=== PATIENT | female | born 1995 | race Caucasian/White ===

== ENCOUNTER 2021-09-22 18:49 | Emergency (ER) | payer OTHER ==
[~2021-09-22] VITALS: Ht 157.5 cm; Wt 68.0 kg
== END 2021-09-22 21:11 | disposition home or self-care (01) ==
LOC: ER 18:49
DX: O46.92 Antepartum hemorrhage, unspecified, second trimester (principal); Z3A.22 22 weeks gestation of pregnancy

== ENCOUNTER 2021-09-24 18:09 | Emergency (ER) | payer OTHER ==
[~2021-09-24] VITALS: Ht 157.5 cm; Wt 59.9 kg
== END 2021-09-25 09:12 | disposition home or self-care (01) ==
LOC: ER 18:09
DX: O03.9 Complete or unspecified spontaneous abortion without complication (principal); D27.0 Benign neoplasm of right ovary; Z20.822 Contact with and (suspected) exposure to COVID-19

== ENCOUNTER 2021-09-27 16:23 | Emergency (ER) | payer OTHER ==
[~2021-09-27] VITALS: Ht 157.5 cm; Wt 68.0 kg
== END 2021-09-28 20:01 | disposition home or self-care (01) ==
LOC: ER 16:23
DX: D36.7 Benign neoplasm of other specified sites (principal); O03.6 Delayed or excessive hemorrhage following complete or unspecified spontaneous abortion

== ENCOUNTER 2025-05-25 17:10 | Outpatient (CLI) | payer OTHER ==
[~2025-05-25] VITALS: Ht 157.5 cm; Wt 74.8 kg
[2025-05-25 16:40] VITALS: BP 107/74
[~2025-05-25 17:10] MED LIST: FAMOTIDINE/PF 20 MG/2 ML VIAL IV SCH
[2025-05-25] MEDS ORDERED: RINGERS SOLUTION,LACTATED 1,000 ML IV SCH (17:30)
[2025-05-25] MEDS ORDERED: ONDANSETRON HCL 2 MG/ML VIAL IV PRN (17:30)
[2025-05-25] MEDS ORDERED: PRENATA CHEWAB1 EACH (17:41)
[2025-05-25] MEDS ORDERED: CHILDREN'S ASPI81 MG PO (17:41)
[2025-05-25 18:06] LABS: BASO % 0.2 % (0.1-1.2); EOS # 0.03 (0.04-0.54); EOS % 0.2 % (0.7-7.0); LYMPH # 1.48 (1.18-3.74); LYMPH % 11.8 % (19.3-53.1); MEAN PLATELET VOLUME 10.40 fl (9.4-12.4); MONO # 0.85 (0.24-0.82); MONO % 6.8 % (4.7-12.5); NEUT # 10.11 (1.56-6.13); NEUT % 80.4 % (34.0-71.1); RED CELL DISTRIBUTION WIDTH 13.8 % (11.6-14.4)
[2025-05-25 18:10] LABS: URINE APPEARANCE Cloudy; URINE BILIRRUBIN Negative (NEGATIVE); URINE BLOOD Negative; URINE COLOR Dark Yellow; URINE GLUCOSE Negative (NEGATIVE); URINE LEUKOCYTE Large; URINE NITRATE Negative; URINE PROTEIN Trace (NEGATIVE); URINE UROBILINOGEN 1.0 E.U./dl
[2025-05-25 18:16] LABS: URINE EPITHELIAL CELLS 114.9 uL (0.0-38.8); URINE RBC 10.1 uL (0.0-20.8); URINE WBC 152.7 uL (0.0-23.2)
[2025-05-25 18:31] LABS: URINE CAST 1.31 uL (0.0-1.40); URINE KETONE 80 (NEGATIVE)
[2025-05-25 18:40] LABS: TYPE CELLS SQUAMOUS; URINE MUCUS SCANT
[2025-05-25 18:50] LABS: ALT/SGPT 49.0 U/L (12-78); AST/SGOT 71.0 U/L (15-37); BILIRUBIN TOTAL 0.85 mg/dL (0.3-1.2); BUN CREA RATIO 15.0 (7.0-25.0); CREATININE SERUM 0.48 mg/dL (0.55-1.02); GFR 155.14; GLOBULINA 3.6 G/DL (2.4-3.5); GLUCOSE FASTING 82.0 mg/dL (65-100); OSMOLALITY SERUM 275.0 MOSM/KG (275-295)
[2025-05-25 20:30] VITALS: BP 109/62
[2025-05-25 23:24] VITALS: BP 105/62
[2025-05-26 04:00] VITALS: BP 94/59
[2025-05-26 07:55] VITALS: BP 93/51; O2SAT 100
== END 2025-05-26 14:32 | disposition home or self-care (01) ==
LOC: OBS/DEL 17:10
PROVIDERS: Specialist; ATTEND Obstetrics & Gynecology
DX: O99.613 Diseases of the digestive system complicating pregnancy, third trimester (principal); K52.9 Noninfective gastroenteritis and colitis, unspecified; Z3A.36 36 weeks gestation of pregnancy

== ENCOUNTER 2025-05-29 10:23 | Inpatient (IN) | payer OTHER ==
[~2025-05-29] VITALS: Ht 160 cm; Wt 76.7 kg
[~2025-05-29 10:23] MED LIST changes: +CHILDREN'S ASPI81 MG PO; -FAMOTIDINE/PF 20 MG/2 ML VIAL IV SCH; +PRENATA CHEWAB1 EACH
[2025-05-29 10:26] VITALS: BP 100/62
[2025-05-29] MEDS ORDERED: FAMOTIDINE/PF 20 MG/2 ML VIAL IV PUSH SCH (11:00)
[2025-05-29] MEDS ORDERED: RINGERS SOLUTION,LACTATED 1,000 ML IV SCH (11:00)
[2025-05-29 12:13] LABS: BASO % 0.2 % (0.1-1.2); EOS # 0.05 (0.04-0.54); EOS % 0.5 % (0.7-7.0); LYMPH # 1.31 (1.18-3.74); LYMPH % 13.8 % (19.3-53.1); MEAN PLATELET VOLUME 10.60 fl (9.4-12.4); MONO # 0.70 (0.24-0.82); MONO % 7.4 % (4.7-12.5); NEUT # 7.33 (1.56-6.13); NEUT % 77.4 % (34.0-71.1); RED CELL DISTRIBUTION WIDTH 14.1 % (11.6-14.4)
[2025-05-29 12:20] LABS: URINE APPEARANCE Clear; URINE BILIRRUBIN Small (NEGATIVE); URINE BLOOD Negative; URINE COLOR Dark Yellow; URINE GLUCOSE Negative (NEGATIVE); URINE LEUKOCYTE Small; URINE NITRATE Negative; URINE PROTEIN Trace (NEGATIVE); URINE UROBILINOGEN 2.0 E.U./dl
[2025-05-29 12:21] LABS: URINE BACTERIA 535.1 uL (0.0-1933); URINE EPITHELIAL CELLS 21.3 uL (0.0-38.8); URINE RBC 2.3 uL (0.0-20.8); URINE WBC 20.4 uL (0.0-23.2)
[2025-05-29 12:26] LABS: URINE CAST 0.00 uL (0.0-1.40); URINE KETONE 80 (NEGATIVE)
[2025-05-29 13:22] LABS: ALT/SGPT 59.0 U/L (12-78); AST/SGOT 81.0 U/L (15-37); BILIRUBIN TOTAL 1.14 mg/dL (0.3-1.2); BUN CREA RATIO 13.0 (7.0-25.0); CREATININE SERUM 0.45 mg/dL (0.55-1.02); GFR 167.13; GLOBULINA 4.0 G/DL (2.4-3.5); GLUCOSE FASTING 86.0 mg/dL (65-100); OSMOLALITY SERUM 276.0 MOSM/KG (275-295)
[2025-05-29] MEDS ORDERED: CITRIC ACID/SODIUM CITRATE 30 ML BLIST.PACK PO NR (14:00)
[2025-05-29 15:25] VITALS: BP 107/64
[2025-05-29] MEDS ORDERED: PROMETHAZINE HCL 25 MG/ML AMPUL IV ONE (15:45)
[2025-05-29 19:37] VITALS: BP 98/63
[2025-05-29 22:10] VITALS: BP 98/63
[2025-05-29] MEDS ORDERED: MORPHINE SULFATE 4 MG/ML CARTRIDGE IV PRN (22:30)
[2025-05-29 23:08] VITALS: BP 96/58
[2025-05-30] VITALS (8 sets, daily range): BP systolic 100–120; BP diastolic 60–82; O2SAT 98
[2025-05-30] MEDS ORDERED: CEFOXITIN SODIUM 2,000 MG VIAL IV SCH (01:00)
[2025-05-31 03:14] VITALS: BP 111/68
[2025-05-31 07:34] VITALS: BP 108/71
[2025-05-31 09:15] VITALS: BP 117/79
[2025-05-31 10:43] LABS: ALT/SGPT 63.0 U/L (12-78); AST/SGOT 50.0 U/L (15-37); BILIRUBIN TOTAL 0.44 mg/dL (0.3-1.2); BUN CREA RATIO 12.0 (7.0-25.0); CREATININE SERUM 0.52 mg/dL (0.55-1.02); GFR 141.45; GLOBULINA 3.4 G/DL (2.4-3.5); GLUCOSE FASTING 107.0 mg/dL (65-100); OSMOLALITY SERUM 276.0 MOSM/KG (275-295)
[2025-05-31 10:46] VITALS: BP 111/73
[2025-05-31 16:21] VITALS: BP 110/73
[2025-06-01] VITALS: BP 101/64
[2025-06-01] MEDS ORDERED: MORPHINE SULFATE 4 MG/ML CARTRIDGE IV PRN (07:00)
[2025-06-01 08:42] VITALS: BP 107/70
[2025-06-01 17:09] VITALS: BP 116/70
[2025-06-02 01:39] VITALS: BP 115/60; O2SAT 98
[2025-06-02 07:52] LABS: AST/SGOT 92 U/L (15-37)
[2025-06-02 08:08] VITALS: BP 103/68
[2025-06-02] MEDS ORDERED: PANTOPRAZOLE SODIUM 40 MG in 0.9 % SODIUM CHLORIDE 8 ML IV PUSH SCH (09:00)
[2025-06-02] MEDS ORDERED: ACETAMINOPHEN 500 MG GEL..CAP PO PRN (12:15)
[2025-06-02 15:28] VITALS: BP 114/80
[2025-06-02 20:01] VITALS: BP 117/75
[2025-06-03 00:05] VITALS: BP 119/75
[2025-06-03 08:00] VITALS: BP 109/74
[2025-06-03 16:36] VITALS: BP 103/70
[2025-06-04 00:08] VITALS: BP 118/70
[2025-06-04 08:39] VITALS: BP 118/75
[2025-06-04 16:37] VITALS: BP 116/72
[2025-06-04] MEDS ORDERED: RINGERS SOLUTION,LACTATED 1,000 ML IV SCH (17:30)
[2025-06-04 22:45] VITALS: BP 128/71
[2025-06-04 23:13] LABS: BASO % 0.2 % (0.1-1.2); EOS # 0.10 (0.04-0.54); EOS % 1.2 % (0.7-7.0); LYMPH # 1.93 (1.18-3.74); LYMPH % 24.0 % (19.3-53.1); MEAN PLATELET VOLUME 10.60 fl (9.4-12.4); MONO # 0.62 (0.24-0.82); MONO % 7.7 % (4.7-12.5); NEUT # 5.31 (1.56-6.13); NEUT % 66.3 % (34.0-71.1); RED CELL DISTRIBUTION WIDTH 14.8 % (11.6-14.4)
[2025-06-04 23:20] LABS: URINE APPEARANCE Cloudy; URINE BILIRRUBIN Negative (NEGATIVE); URINE BLOOD Negative; URINE COLOR Dark Yellow; URINE GLUCOSE Negative (NEGATIVE); URINE LEUKOCYTE Moderate; URINE NITRATE Negative; URINE PROTEIN 30 (NEGATIVE); URINE UROBILINOGEN 1.0 E.U./dl
[2025-06-04 23:23] LABS: URINE BACTERIA 394.8 uL (0.0-1933); URINE EPITHELIAL CELLS 74.7 uL (0.0-38.8); URINE RBC 13.4 uL (0.0-20.8); URINE WBC 39.6 uL (0.0-23.2)
[2025-06-04 23:30] LABS: INR 0.98
[2025-06-04 23:39] LABS: BUN CREA RATIO 5.0 (7.0-25.0); CREATININE SERUM 0.88 mg/dL (0.55-1.02); GFR 77.08; GLUCOSE FASTING 77.0 mg/dL (65-100); OSMOLALITY SERUM 279.0 MOSM/KG (275-295)
[2025-06-04 23:48] LABS: URINE CAST 1.31 uL (0.0-1.40); URINE KETONE >=160 (NEGATIVE)
[2025-06-04 23:50] VITALS: BP 119/67; O2SAT 100
[2025-06-05 05:37] VITALS: BP 120/63
[2025-06-05 07:41] VITALS: BP 127/58
[2025-06-05 11:15] VITALS: BP 120/74
[2025-06-05 15:47] VITALS: BP 131/79
[2025-06-05 19:15] VITALS: BP 121/67
[2025-06-05 23:21] VITALS: BP 120/77
[2025-06-06] VITALS (10 sets, daily range): BP systolic 107–126; BP diastolic 55–78
[2025-06-06] MEDS ORDERED: ACETAMINOPHEN 500 MG GEL..CAP PO ONE (01:00)
[2025-06-06] MEDS ORDERED: PANTOPRAZOLE SODIUM 40 MG TABLET.DR PO SCH (09:00)
[2025-06-06] MEDS ORDERED: OXYTOCIN 20 UNITS/500ML RL PIGGYBAG IV ONE (11:23)
[2025-06-06] MEDS ORDERED: OXYTOCIN 20 UNITS/500ML RL PIGGYBAG IV SCH (11:45)
[2025-06-06] MEDS ORDERED: AMPICILLIN SODIUM 2,000 MG VIAL IV ONE (15:15)
[2025-06-06] MEDS ORDERED: ERYTHROMYCIN BASE OPHT 1GM EACH TUBE OP ONE (18:38)
[2025-06-06] MEDS ORDERED: OXYTOCIN 20 UNITS/1000ML RL PIGGYBAG IV ONE (18:39)
[2025-06-06] MEDS ORDERED: CHLORHEXIDINE GLUCONATE 120 ML BOTTLE TOP ONE (18:39)
[2025-06-06] MEDS ORDERED: LIDOCAINE HCL 1% 10ML VIAL ONE (18:39)
[2025-06-06] MEDS ORDERED: ACETAMINOPHEN 500 MG GEL..CAP PO PRN (20:00)
[2025-06-06] MEDS ORDERED: OXYTOCIN 1,000 ML IV SCH (20:00)
[2025-06-06] MEDS ORDERED: AMPICILLIN SODIUM 1,000 MG VIAL IV SCH (20:00)
[2025-06-06] MEDS ORDERED: CHLORHEXIDINE GLUCONATE 120 ML BOTTLE TP SCH (20:00)
[2025-06-06] MEDS ORDERED: LIDOCAINE HCL 1% 10ML VIAL IJ ONE (20:45)
[2025-06-06] MEDS ORDERED: ERYTHROMYCIN LACTOBIONATE 500 MG VIAL IV ONE (20:45)
[2025-06-06 23:16] LABS: BASO % 0.1 % (0.1-1.2); EOS # 0.01 (0.04-0.54); EOS % 0.1 % (0.7-7.0); LYMPH # 0.93 (1.18-3.74); LYMPH % 6.8 % (19.3-53.1); MEAN PLATELET VOLUME 11.30 fl (9.4-12.4); MONO # 1.01 (0.24-0.82); MONO % 7.4 % (4.7-12.5); NEUT # 11.70 (1.56-6.13); NEUT % 85.3 % (34.0-71.1); RED CELL DISTRIBUTION WIDTH 14.8 % (11.6-14.4)
[2025-06-07 00:12] VITALS: BP 109/71
[2025-06-07 08:00] VITALS: BP 117/78
[2025-06-07] MEDS ORDERED: PNV,CALCIUM 72/IRON/FOLIC ACID 1 TAB TABLET PO SCH (09:00)
[2025-06-07] MEDS ORDERED: AMINO ACIDS/PROTEIN HYDROLYS 30 ML BLIST.PACK PO SCH (17:00)
[2025-06-07 20:29] VITALS: BP 125/83
[2025-06-08] VITALS: BP 100/65
[2025-06-08 08:54] VITALS: BP 136/85
[2025-06-08 16:00] VITALS: BP 115/73
[2025-06-08] MEDS ORDERED: PRENATE ENHANC1 EACH PO (18:09)
== END 2025-06-08 18:21 | disposition home or self-care (01) | DRG 805 ==
LOC: OBS/DEL 10:23 → OB/GYN 22:15 → LDR 22:15 → OB/GYN 05-31 08:46
PROVIDERS: General Practice; Obstetrics & Gynecology; ADMIT Obstetrics & Gynecology; ATTEND Obstetrics & Gynecology
PROC: 4A1HXCZ Monitoring of Products of Conception, Cardiac Rate, External Approach (ICD-10-PCS; 2025-05-29)
PROC: BW40ZZZ Ultrasonography of Abdomen (ICD-10-PCS; 2025-05-29)
PROC: BY4FZZZ Ultrasonography of Third Trimester, Single Fetus (ICD-10-PCS; 2025-06-04)
PROC: BU4CZZZ Ultrasonography of Uterus and Ovaries (ICD-10-PCS; 2025-06-04)
PROC: 10E0XZZ Delivery of Products of Conception, External Approach (ICD-10-PCS; principal; 2025-06-06)
DX: O26.643 Intrahepatic cholestasis of pregnancy, third trimester (principal); O60.03 Preterm labor without delivery, third trimester; O36.8130 Decreased fetal movements, third trimester, not applicable or unspecified; O26.843 Uterine size-date discrepancy, third trimester; O26.893 Other specified pregnancy related conditions, third trimester; R10.20 Pelvic and perineal pain unspecified side; Z3A.36 36 weeks gestation of pregnancy; Z37.0 Single live birth; Z3A.37 37 weeks gestation of pregnancy
CPT/HCPCS: 240

== ENCOUNTER 2025-06-25 11:36 | Inpatient (IN) | payer OTHER ==
[~2025-06-25] VITALS: Ht 157.5 cm; Wt 66.2 kg
[~2025-06-25 11:36] MED LIST changes: +PRENATE ENHANC1 EACH PO
--- NOTE | 2025-06-25 12:12 | NUR ---
PACIENTE FEMENINA ALERTA Y ORIENTADA X3, REFIERE DOLOR EN EN TAYLOR ESPALDA BAJA EN EL DERECHO.
[2025-06-25] MEDS ORDERED: FAMOTIDINE/PF 20 MG/2 ML VIAL IV ONE (13:00)
[2025-06-25] MEDS ORDERED: PIPERACILLIN/TAZOBACTAM SODIUM 3.375 GM in DEXTROSE 5 % IN WATER 100 ML IV SCH (13:01)
[2025-06-25] MEDS ORDERED: ONDANSETRON HCL 4 MG in DEXTROSE 5 % IN WATER 50 ML IV PRN ×2 (13:15→18:15)
[2025-06-25] MEDS ORDERED: 0.9 % SODIUM CHLORIDE 1,000 ML IV ONE (13:15)
[2025-06-25] MEDS ORDERED: MORPHINE SULFATE 4 MG/ML VIAL IV PRN (13:15)
[2025-06-25] MEDS ORDERED: FAMOTIDINE/PF 20 MG/2 ML VIAL ONE (13:24)
[2025-06-25] MEDS ORDERED: PIPERACILLIN/TAZOBACTAM SODIUM 3.375 GM VIAL IV ONE ×2 (13:24→23:39)
[2025-06-25] MEDS ORDERED: ONDANSETRON HCL 2 MG/ML VIAL ONE (13:24)
[2025-06-25 14:03] LABS: BASO % 0.1 % (0.1-1.2); EOS # 0.04 (0.04-0.54); EOS % 0.4 % (0.7-7.0); LYMPH # 1.56 (1.18-3.74); LYMPH % 14.7 % (19.3-53.1); MEAN PLATELET VOLUME 11.50 fl (9.4-12.4); MONO # 0.66 (0.24-0.82); MONO % 6.2 % (4.7-12.5); NEUT # 8.30 (1.56-6.13); NEUT % 78.1 % (34.0-71.1); RED CELL DISTRIBUTION WIDTH 16.1 % (11.6-14.4)
--- NOTE | 2025-06-25 14:06 | NUR ---
MEDICO EVALUA PACIENTE, SE LE ADMINISTRA MEDICAMENTOS DIMITRIS ORDEN MEDICA Y SE LE LEFTY MUESTRAS DE LABORATORIOS. SE LE ORIENTA PACIENTE Y REFIERE ENTENDER.
[2025-06-25 14:24] LABS: INR 1.06
[2025-06-25 14:29] LABS: ALT/SGPT 82.0 U/L (12-78); AST/SGOT 129.0 U/L (15-37); BILIRUBIN TOTAL 0.96 mg/dL (0.3-1.2); BILIRUBIN,CONJUGATED 0.33 mg/dL (0.0-0.2); BUN CREA RATIO 17.0 (7.0-25.0); CREATININE SERUM 0.7 mg/dL (0.55-1.02); GFR 100.38; GLOBULINA 4.0 G/DL (2.4-3.5); GLUCOSE FASTING 133.0 mg/dL (65-100); OSMOLALITY SERUM 287.0 MOSM/KG (275-295)
[2025-06-25 16:50] LABS: URINE APPEARANCE Clear; URINE BILIRRUBIN Negative (NEGATIVE); URINE BLOOD Large; URINE COLOR Yellow; URINE GLUCOSE Negative (NEGATIVE); URINE KETONE 15 (NEGATIVE); URINE LEUKOCYTE Trace; URINE NITRATE Negative; URINE PROTEIN Negative (NEGATIVE); URINE UROBILINOGEN 1.0 E.U./dl
[2025-06-25 16:54] LABS: URINE BACTERIA 4.5 uL (0.0-1933); URINE EPITHELIAL CELLS 3.2 uL (0.0-38.8); URINE RBC 23.6 uL (0.0-20.8); URINE WBC 4.1 uL (0.0-23.2)
[2025-06-25 17:06] LABS: URINE CAST 0.00 uL (0.0-1.40)
[2025-06-25] MEDS ORDERED: MORPHINE SULFATE 4 MG/ML CARTRIDGE IV PRN (18:15)
[2025-06-25] MEDS ORDERED: RINGERS SOLUTION,LACTATED 1,000 ML IV SCH (18:15)
[2025-06-25] MEDS ORDERED: FAMOTIDINE/PF 20 MG/2 ML VIAL IV SCH (21:00)
[2025-06-25 21:22] VITALS: BP 115/79; O2SAT 99
[2025-06-25 22:06] LABS: CHOL HDL RATIO 4.8 (0-5.0); HDL 40.0 mg/dl (40-60); LDL 137.0 mg/dl (0-130); VLDL 16.0 (0-39)
[2025-06-26] MEDS ORDERED: BUPIVACAINE HCL/MPF 0.5% 30ML VIAL ONE (09:53)
[2025-06-26] MEDS ORDERED: CEFAZOLIN SODIUM 1,000 MG VIAL ONE (09:55)
[2025-06-26] MEDS ORDERED: PIPERACILLIN/TAZOBACTAM SODIUM 3.375 GM VIAL IV ONE (12:47)
[2025-06-26 13:10] VITALS: BP 129/81; O2SAT 99
[2025-06-26 13:51] LABS: ALT/SGPT 81.0 U/L (12-78); AST/SGOT 63.0 U/L (15-37); BILIRUBIN TOTAL 0.35 mg/dL (0.3-1.2); BILIRUBIN,CONJUGATED 0.11 mg/dL (0.0-0.2)
[2025-06-26 16:04] VITALS: BP 114/74; O2SAT 99
[2025-06-26] MEDS ORDERED: AA 4.25%/CAL/LYTES/DEXT 5% 1,000 ML PERIFERAL SCH (17:00)
[2025-06-27] VITALS: BP 103/66; O2SAT 96
[2025-06-27 06:19] LABS: BASO % 0.3 % (0.1-1.2); EOS # 0.21 (0.04-0.54); EOS % 3.3 % (0.7-7.0); LYMPH # 2.71 (1.18-3.74); LYMPH % 42.5 % (19.3-53.1); MEAN PLATELET VOLUME 11.60 fl (9.4-12.4); MONO # 0.42 (0.24-0.82); MONO % 6.6 % (4.7-12.5); NEUT # 3.00 (1.56-6.13); NEUT % 47.0 % (34.0-71.1); RED CELL DISTRIBUTION WIDTH 16.4 % (11.6-14.4)
[2025-06-27 06:51] LABS: ALT/SGPT 58 U/L (12-78); AST/SGOT 38 U/L (15-37); BILIRUBIN TOTAL 0.32 mg/dL (0.3-1.2); BILIRUBIN,CONJUGATED < 0.10 mg/dL (0.0-0.2)
[2025-06-27 10:21] VITALS: BP 110/73; O2SAT 98
[2025-06-27] MEDS ORDERED: TRAM1TAB98 PO (12:56)
== END 2025-06-27 13:40 | disposition home or self-care (01) | DRG 419 ==
LOC: ER 11:37 → SURG 22:26 → SURH 06-26 15:29
PROVIDERS: General Practice; Student in an Organized Health Care Education/Training Program; ADMIT Internal Medicine; ATTEND Internal Medicine
PROC: BW40ZZZ Ultrasonography of Abdomen (ICD-10-PCS; 2025-06-25)
PROC: 0FT44ZZ Resection of Gallbladder, Percutaneous Endoscopic Approach (ICD-10-PCS; principal; 2025-06-26 09:15)
DX: K80.10 Calculus of gallbladder with chronic cholecystitis without obstruction (principal)